=== PATIENT | female | born 1945 | race Caucasian/White ===

== ENCOUNTER → 2023-07-01 | Day surgery (SDC) | payer OTHER ==
[2023-07-02 08:14] LABS: ALPHA-1-ANTITRYPSIN 126 mg/dL (101-187)
[2023-07-02 16:08] LABS: MITOCHONDRIAL AB <20.0 Units (0.0-20.0)
[2023-07-05 23:06] LABS: ALPHA 2 MACROGLOBULINS,QN 178 mg/dL (110-276); ALT(SGPT)P5P 26 IU/L (0-40); APOLIPOPROTEIN A-1. 166 mg/dL (116-209); CHOLESTEROL TOTAL 186 mg/dL (100-199); FIBROSIS SCORE- 0.11 (0.00-0.21); GLUCOSE SERUM 138 mg/dL (70-99); HEIGHT. 66 in (.); WEIGHT. 427 LBS (.)
[2023-07-06 00:12] LABS: ALPHA 2 MACROGLOBULINS,QN 170 mg/dL (110-276); ALT(SGPT)P5P 29 IU/L (0-40); APOLIPOPROTEIN A-1. 166 mg/dL (116-209); CHOLESTEROL TOTAL 176 mg/dL (100-199); GLUCOSE SERUM 145 mg/dL (70-99)
[2023-07-06 17:11] LABS: SOLUBLE LIVER ANTIGEN ABS IgG 0.7 units (0.0-20.0)
== END | disposition home or self-care (01) ==
LOC: FMAMMOTONE 09:27
PROVIDERS: ATTEND Internal Medicine Nephrology
PROC: 0HBU3ZX Excision of Left Breast, Percutaneous Approach, Diagnostic (ICD-10-PCS; principal; 2023-07-01)
DX: Z53.29 Procedure and treatment not carried out because of patient's decision for other reasons (principal)
CPT/HCPCS: 36415; 80061; 82103; 82390; 82728; 82962; 83516; 83540; 83550; 86038; 86140

== ENCOUNTER 2023-07-06 16:29 | Emergency (ER) | payer OTHER ==
[2023-07-06 17:01] VITALS: BP 161/85; PULSE 80; RESP 18; TEMP 97.4; BMI 30.9
[2023-07-06] MEDS ORDERED: ACETAMINOPHEN 1000 MG/100 ML BAG IVPB ONE (17:20)
[2023-07-06] MEDS ORDERED: ACETAMINOPHEN INJECTION 100 ML IVPB ONE (17:28)
[2023-07-06 18:19] LABS: BASO % 0.5 % (0-2.0); EOS % 1.2 % (0-4.5); HEMATOCRIT 45.5 % (32.4-45.2); HEMOGLOBIN 15.3 GM/dL (10.7-15.3); LYMPH % 18.4 % (8-40); MCH 30.2 pg (25.7-33.7); MCHC 33.5 g/dl (32.0-36.0); MEAN PLT VOLUME 7.9 fl (7.5-11.1); MONO % 5.9 % (3.8-10.2); PLATELET COUNT 428 10^3/uL (134-434); RBC 5.06 M/mm3 (3.60-5.2); RDW 14.1 % (11.6-15.6); WHITE BLOOD COUNT 10.6 K/mm3 (4.0-10.0)
[2023-07-06 18:26] LABS: INR 0.99 (0.83-1.09); PROTHROMBIN TIME (PATIENT) 11.5 SEC (9.7-13.0)
[2023-07-06 18:29] LABS: ACTIVATED PTT 31.3 SECONDS (25.2-36.5)
[2023-07-06 18:37] LABS: POTASSIUM 3.9 mmol/L (3.5-5.1)
[2023-07-06 18:38] LABS: CALCIUM 8.9 mg/dL (8.5-10.1)
[2023-07-06 18:39] LABS: ALBUMIN 3.6 g/dl (3.4-5.0); MAGNESIUM 2.5 mg/dL (1.8-2.4)
[2023-07-06 18:42] LABS: CREATININE 0.9 mg/dL (0.55-1.3)
[2023-07-06 18:44] LABS: BILIRUBIN,TOTAL 0.6 mg/dL (0.2-1); TOT PROT 6.3 g/dl (6.4-8.2)
== END 2023-07-06 19:46 | disposition home or self-care (01) ==
LOC: JER 16:29
PROC: 3E033NZ Introduction of Analgesics, Hypnotics, Sedatives into Peripheral Vein, Percutaneous Approach (ICD-10-PCS; principal; 2023-07-06)
DX: R10.84 Generalized abdominal pain (principal); G89.18 Other acute postprocedural pain; R14.0 Abdominal distension (gaseous); R10.32 Left lower quadrant pain; R10.13 Epigastric pain
CPT/HCPCS: 36415; 74176-TC; 80053; 83605; 83735; 85025; 85610; 85730; 86850; 86900; 86901; 93005; 93010; 99285-25

== ENCOUNTER → 2023-07-27 | Day surgery (SDC) | payer OTHER | END | disposition home or self-care (01) | LOC: FMAMMOTONE 10:06 | PROVIDERS: ATTEND Internal Medicine Nephrology | PROC: 0HBU3ZX Excision of Left Breast, Percutaneous Approach, Diagnostic (ICD-10-PCS; principal; 2023-07-27) | DX: Z53.8 Procedure and treatment not carried out for other reasons (principal); N63.20 Unspecified lump in the left breast, unspecified quadrant | CPT/HCPCS: 19081 ==